=== PATIENT | female | born 1995 | race Caucasian/White ===

== ENCOUNTER 2017-06-28 23:00 | Emergency (ER) | payer OTHER ==
[~2017-06-28] VITALS: Ht 160 cm; Wt 107.0 kg
[~2017-06-28 23:00] MED LIST: KEFLEX500 MG PO; LAC PO; MOTRIN800 MG PO; NOR10T PO
[2017-06-28 23:03] VITALS: Ht 160 cm; Wt 107.0 kg
[2017-06-29 01:51] VITALS: BP 152/92
== END 2017-06-29 01:51 | disposition home or self-care (01) ==
LOC: ED 23:00
DX: J06.9 Acute upper respiratory infection, unspecified (principal); J45.901 Unspecified asthma with (acute) exacerbation
CPT/HCPCS: J7512; J7613; Q0092

== ENCOUNTER 2018-09-09 02:17 | Emergency (ER) | payer OTHER ==
[~2018-09-09] VITALS: Ht 157.5 cm; Wt 72.6 kg
[2018-09-09 02:28] VITALS: Ht 157.5 cm; Wt 72.6 kg
[2018-09-09 03:47] VITALS: BP 119/72
== END 2018-09-09 03:47 | disposition home or self-care (01) ==
LOC: ED 02:17
DX: J45.901 Unspecified asthma with (acute) exacerbation (principal)
CPT/HCPCS: J7512